=== PATIENT | female | born 1995 | race Caucasian/White ===

== ENCOUNTER 2018-01-07 22:30 | Outpatient (CLI) | payer MEDICAID ==
[2018-01-07 23:58] LABS: APPEARANCE,URINE CLOUDY; BILIRUBIN,URINE NEGATIVE (NEGATIVE); COLOR,URINE YELLOW; GLUCOSE, URINE NEGATIVE (NEGATIVE); KETONES,URINE NEGATIVE (NEGATIVE); LEUKOCYTE ESTERASE,URINE LARGE (NEGATIVE); NITRITE,URINE NEGATIVE (NEGATIVE); PROTEIN,URINE NEGATIVE (NEGATIVE); URINE SPECIFIC GRAVITY 1.024
[2018-01-08 00:14] LABS: URINE AMPHETAMINES SCREEN NEGATIVE; URINE BARBITURATES SCREEN NEGATIVE; URINE BENZODIAZEPINES SCREEN NEGATIVE; URINE COCAINE SCREEN NEGATIVE; URINE MARIJUANA (THC) SCREEN NEGATIVE; URINE METHADONE SCREEN NEGATIVE; URINE PHENCYCLIDINE SCREEN NEGATIVE
--- NOTE | 2018-01-08 00:38 | Non Stress Test Report ---
Non Stress Test Datetime Report Generated by CPN: 01/08/2018 00:37 DEMOGRAPHIC Test Number: 1 EGA NST: 38.5 INDICATION Indication for Study: Ordered by Provider (Annotations: Data stored by CPN on behalf of user) VITAL SIGNS Temperature - NST: 99.1 Pulse - NST: 60 RESP - NST: 14 NBPSYS NST: 101 NBPDIA NST: 63 URINE RESULTS Urine Protein, NST: Negative Urine Ketones - NST: Negative Urine Glucose - NST: Negative Urine Blood - NST: Positive MONITORING Monitor Explained: Monitor Explained; Test Explained; Patient Verbalized Understanding Time on Monitor: 01/07/2018 22:58 Time off Monitor: 01/08/2018 00:28 NST Duration: 90 NST INTERVENTIONS NST Interventions: PO Hydration; Oxytocin Challenge Test Physician Notified NST: Dr. Younger BABY A: [id number] BABY A Movement : Present Contraction Frequency : None FHR Baseline : 125 Accelerations : 15X15 Decelerations : None Variability : Moderate 6-25bpm NST Review: Meets Criteria for Reactive NST NST Review and Verified By : RN Shun NST Results: Reactive NST COMMENTS NST Comments: No ctx's noted, pt reports pain 2/5. NST REPORT Report Trigger: Send Report
== END 2018-01-08 00:39 | disposition home or self-care (01) ==
LOC: LC 22:30
PROVIDERS: ATTEND Obstetrics & Gynecology
PROC: 4A1HXCZ Monitoring of Products of Conception, Cardiac Rate, External Approach (ICD-10-PCS; principal; 2018-01-07)
DX: O47.1 False labor at or after 37 completed weeks of gestation (principal); Z3A.38 38 weeks gestation of pregnancy
CPT/HCPCS: 59025; 80307; 81005

== ENCOUNTER 2018-01-12 07:19 | Inpatient (IN) | payer MEDICAID ==
[2018-01-12] MEDS ORDERED: OXYTOCIN/NORMAL SALINE 20 UNIT/1,000 ML RTUINJ IV PRN ×2 (08:35→20:32)
[2018-01-12] MEDS ORDERED: RINGERS SOLUTION,LACTATED 300 ML IV ONE (08:35)
[2018-01-12] MEDS ORDERED: RINGERS SOLUTION,LACTATED 1,000 ML IV PRN (08:35)
[2018-01-12] MEDS ORDERED: OXYTOCIN/NORMAL SALINE 0 UNIT/0 ML RTUINJ ONE (09:03)
[2018-01-12 09:10] LABS: APPEARANCE,URINE SLIGHTLY-CLOUDY; BILIRUBIN,URINE NEGATIVE (NEGATIVE); COLOR,URINE YELLOW; GLUCOSE, URINE NEGATIVE (NEGATIVE); KETONES,URINE NEGATIVE (NEGATIVE); LEUKOCYTE ESTERASE,URINE NEGATIVE (NEGATIVE); NITRITE,URINE NEGATIVE (NEGATIVE); PROTEIN,URINE 30 mg/dL (NEGATIVE); URINE SPECIFIC GRAVITY 1.028
[2018-01-12 09:24] LABS: URINE AMPHETAMINES SCREEN NEGATIVE; URINE BARBITURATES SCREEN NEGATIVE; URINE BENZODIAZEPINES SCREEN NEGATIVE; URINE COCAINE SCREEN NEGATIVE; URINE METHADONE SCREEN NEGATIVE; URINE PHENCYCLIDINE SCREEN NEGATIVE
[2018-01-12 09:28] LABS: URINE MARIJUANA (THC) SCREEN UNCONFIRMED POSITIVE
[2018-01-12 10:08] LABS: BASOPHILS % (AUTO) 0.3 % (0-2); HEMATOCRIT 28.3 % (36.0-47.0); LYMPHOCYTES % (AUTO) 32.2 % (13-45); MEAN CORPUSCULAR HEMOGLOBIN 33.4 pg (27.0-33.4); MEAN CORPUSCULAR HGB CONC 35.4 g/dL (32.0-36.0); MEAN CORPUSCULAR VOLUME 95 fl (80-97); MONOCYTES % (AUTO) 7.5 % (3-13); PLATELET COUNT 122 10^3/uL (150-450); RED BLOOD COUNT 2.99 10^6/uL (3.72-5.28); RED CELL DISTRIBUTION WIDTH 12.6 % (11.5-14.0); WHITE BLOOD COUNT 5.2 10^3/uL (4.0-10.5)
[2018-01-12 10:09] LABS: ABSOLUTE EOSINOPHILS # (AUTO) 0.1 10^3/uL (0.0-0.6); ABSOLUTE LYMPHOCYTES (AUTO) 1.7 10^3/uL (0.5-4.7); ABSOLUTE MONOCYTES (AUTO) 0.4 10^3/uL (0.1-1.4); ABSOLUTE NEUT (AUTO) 3.1 10^3/uL (1.7-8.2); TOTAL CELLS COUNTED % (AUTO) 100 %
--- NOTE | 2018-01-12 12:55 | Admission Physical ---
Datetime Report Generated by CPN: 01/12/2018 12:55 CURRENT ADMISSION Chief Complaint: Scheduled Induction of Labor Indication for Induction: IUGR Admit Impression : No Active Labor Admit Plan: Initiate Labor Induction Protocol ALLERGIES Medication Allergies: No Medication Allergies: No Known Allergies (01/07/2018) Latex: No Latex Allergies OBSTETRICAL HISTORY EDC: 01/16/2018 00:00 : 2 Para: 1 Term: 1 : 0 SAB: 0 IAB: 0 Ectopic: N/A Livin Cesareans: 0 VBACs: N/A Multiple Births: 0 Gestational Diabetes: No Rh Sensitization: No Incompetent Cervix: No ANSON: No Infertility: No ART Treatment: No Uterine Anomaly: No IUGR: No Hx Previous C/S: No Macrosomia: No Hx Loss/Stillborn: No PIH: No Hx : No Placenta Previa/Abruption: No Depression/PP Depression: No PTL/PROM: No Post Hemorrhage: No Current Procedures: Ultrasound; NST Obstetrical History Comments: G1 - Baby girl born @ 37 weeks; NVD G2 - Current SEE RECORDS Alcohol: No Marijuana : No Cocaine: No Other Illicit Drugs: No Cigarettes: Never Smoker. [id number] MEDICAL HISTORY Diabetes: No Blood Transfusion: No Pulmonary Disease (Asthma, TB): No Breast Disease: No Hypertension: No Plate Former Surgery: No Heart Disease: No Hosp/Surgery: No Autoimmune Disorder: No Anesthetic Complications: No Kidney Disease: No Abnormal Pap Smear: No Neuro/Epilepsy: No Psychiatric Disorders: No Other Medical Diseases: No Hepatitis/Liver Disease: No Significant Family History: No Varicosities/Phlebitis: No Trauma/Violence : No Thyroid Dysfunction: No INFECTIOUS HISTORY Gonorrhea: No Genital Herpes: No Chlamydia: No Tuberculosis: No Syphilis: No Hepatitis: No HIV/AIDS Exposure: No Rash or Viral Illness: No HPV: No PHYSICAL EXAM General: Normal HEENT: Deferred Neurologic: Normal Thyroid: Deferred Heart: Normal Lungs: Normal Breast: Deferred Back: Deferred Abdomen: Normal Genitourinary Exam: Normal Extremities: Normal DTRs: Deferred Pelvic Type: Adequate Physical Exam Comments: No vaginal lesions on exam VAGINAL EXAM Dilatation: 3 Effacement: 50 Station: -2 MEMBRANES Membranes: Intact FETUS A EGA: 39.3 FHR- Baseline: 130 Variability: Moderate 6-25bpm Accelerations: 15X15 Decelerations: None FHR Category: Category I Admit Comment: dates by 17wk sono inconsistent care 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
--- NOTE | 2018-01-12 14:23 | L&D Progress Notes ---
PROGRESS NOTES Datetime Report Generated by CPN: 01/12/2018 14:23 PROGRESS NOTE Impression: Reactive Non Stress Test Plan: Induction Comment: MFM consulted by Dr. Nguyen regarding decision to induce labor for suspected IUGR based on 2nd trimester US, advised to proceed with IOL today Pt is in agreement with plan VAGINAL EXAM Dilatation: 3 Dilatation: 3 Effacement: 50 Effacement: 50 Station: -2 MEMBRANES Membranes: Intact Membranes: Intact FETUS A Monitoring: External US Variability: Moderate 6-25bpm : 39.3 : 39.3 SIGNATURE SIGNATURE: [id number] SIGNATURE: [id number] SIGNATURE: ,[id number] Assignment: Amber Nguyen MD Signature: with User ID: [email or web address] : with User ID: [email or web address]
[2018-01-12] MEDS ORDERED: FENTANYL/BUPIVACAINE/NS/PF 300 MCG/150 ML RTUINJ EPI ONE (17:23)
[2018-01-12] MEDS ORDERED: BUPIVACAINE HCL 0.5 % INJ/PF 30 ML SDV ONE (17:23)
[2018-01-12] MEDS ORDERED: EPHEDRINE SULFATE INJ 50 MG/1 ML AMPULE ONE (17:23)
[2018-01-12] MEDS ORDERED: OXYTOCIN/NORMAL SALINE 20 UNIT/1,000 ML RTUINJ ONE (18:25)
[2018-01-12] MEDS ORDERED: LIDOCAINE 1% INJ-PF (10 MG/ML) 30 ML SDV ONE (18:25)
[2018-01-12] MEDS ORDERED: MISOPROSTOL 0.2 MG TABLET ONE (18:25)
[2018-01-12] MEDS ORDERED: PROMETHAZINE HCL INJ 25 MG/1 ML VIAL IV PRN (20:32)
[2018-01-12] MEDS ORDERED: GLYCERIN/WITCH HAZEL LEAF 1 EACH MED..PAD TP PRN (20:32)
[2018-01-12] MEDS ORDERED: ACETAMINOPHEN 650 MG SUPP.RECT PR PRN (20:32)
[2018-01-12] MEDS ORDERED: PROMETHAZINE HCL 25 MG TABLET PO PRN (20:32)
[2018-01-12] MEDS ORDERED: DIPHENHYDRAMINE HCL 25 MG CAPSULE PO PRN (20:32)
[2018-01-12] MEDS ORDERED: ZOLPIDEM TARTRATE 5 MG TABLET PO PRN (20:32)
[2018-01-12] MEDS ORDERED: PSEUDOEPHEDRINE HCL 30 MG TABLET PO PRN (20:32)
[2018-01-12] MEDS ORDERED: DIBUCAINE 1% OINTMENT 28 GM TP PRN (20:32)
[2018-01-12] MEDS ORDERED: MEASLES,MUMPS&RUBELLA VACC/PF 0.5 ML VIAL SUBCUT PRN (20:32)
[2018-01-12] MEDS ORDERED: NA PHOS,M-B/NA PHOS,DI-BA (ADULT) 133 ML ENEMA PR PRN (20:32)
[2018-01-12] MEDS ORDERED: MAGNESIUM HYDROXIDE SUSP 30 ML UDCUP PO PRN (20:32)
[2018-01-12] MEDS ORDERED: PROMETHAZINE HCL 25 MG SUPP.RECT PR PRN (20:32)
[2018-01-12] MEDS ORDERED: DIPH/PERTUSS(ACELL)/TETANUS VAC/PF 0.5 ML SYR (>=10YO) IM PRN (20:32)
[2018-01-12] MEDS ORDERED: BENZOCAINE/MENTHOL AEROSOL SPRAY 56 ML TOP PRN (20:32)
[2018-01-12] MEDS: IBUPROFEN 800 MG TABLET PO SCH (22:41)
[2018-01-12] MEDS: FAMOTIDINE 20 MG TABLET PO SCH (22:45)
[2018-01-13] MEDS: ACETAMINOPHEN WITH CODEINE #3 TABLET PO PRN ×3 (02:50→21:31)
[2018-01-13] MEDS: IBUPROFEN 800 MG TABLET PO SCH ×3 (05:49→21:30)
[2018-01-13 07:33] LABS: HEMATOCRIT 28.4 % (36.0-47.0); HEMOGLOBIN 10.1 g/dL (12.0-15.5); MEAN CORPUSCULAR HEMOGLOBIN 33.8 pg (27.0-33.4); MEAN CORPUSCULAR HGB CONC 35.6 g/dL (32.0-36.0); MEAN CORPUSCULAR VOLUME 95 fl (80-97); PLATELET COUNT 129 10^3/uL (150-450); RED BLOOD COUNT 2.99 10^6/uL (3.72-5.28); RED CELL DISTRIBUTION WIDTH 12.3 % (11.5-14.0); WHITE BLOOD COUNT 7.9 10^3/uL (4.0-10.5)
[2018-01-13] MEDS: FAMOTIDINE 20 MG TABLET PO SCH ×2 (09:06→21:30)
[2018-01-13] MEDS: PRENATAL VITAMIN W DHA CAPSULE PO SCH (09:06)
[2018-01-13] MEDS: FERROUS SULFATE 325 MG TABLET PO SCH ×2 (09:07→17:20)
[2018-01-13] MEDS: DOCUSATE SODIUM 100 MG CAPSULE PO SCH ×2 (09:07→17:20)
[2018-01-13] MEDS: SENNOSIDES/DOCUSATE 8.6-50 MG 1 EACH TABLET PO SCH (09:07)
--- NOTE | 2018-01-13 09:14 | PDOC PROGRESS REPORT ---
Subjective Progress Note for:: 01/13/18 Subjective:: Patient states that she feels good; decreasing lochia. Breast-feeding is going well. Patient denies chest pain, shortness of breath, fever/chills and nausea/ vomiting. She is ambulating voiding without difficulty. Reason For Visit: IOL FOR IUGR Physical Exam - Physical Exam Vital Signs: Temp Pulse Resp BP Pulse Ox 98.4 F 64 15 103/69 100 01/13/18 07:58 01/13/18 07:58 01/13/18 07:58 01/13/18 07:58 01/13/18 07:58 Intake & Output 01/12/18 01/13/18 01/14/18 06:59 06:59 06:59 Intake Total 300 Balance 300 Weight 53 kg General appearance: PRESENT: no acute distress Respiratory exam: PRESENT: clear to auscultation karina Cardiovascular exam: PRESENT: RRR GI/Abdominal exam: PRESENT: normal bowel sounds, soft - Fundus firm and below umbilicus Extremities exam: ABSENT: calf tenderness, clubbing, full ROM, joint swelling, pedal edema, tenderness, +1 edema, +2 edema, other Result Laboratory Results: 01/13/18 07:01 01/12/18 01/12/18 01/12/18 07:30 09:33 09:33 WBC 5.2 RBC 2.99 L Hgb 10.0 L Hct 28.3 L MCV 95 MCH 33.4 MCHC 35.4 RDW 12.6 Plt Count 122 L Seg Neutrophils % 59.0 Lymphocytes % 32.2 Monocytes % 7.5 Eosinophils % 1.0 Basophils % 0.3 Absolute Neutrophils 3.1 Absolute Lymphocytes 1.7 Absolute Monocytes 0.4 Absolute Eosinophils 0.1 Absolute Basophils 0.0 Urine Color YELLOW Urine Appearance SLIGHTLY-CLOUDY Urine pH 6.0 Ur Specific [place] 1.028 Urine Protein 30 H Urine Glucose (UA) NEGATIVE Urine Ketones NEGATIVE Urine Blood NEGATIVE Urine Nitrite NEGATIVE Ur Leukocyte Esterase NEGATIVE Urine WBC (Auto) 2 Urine RBC (Auto) 1 Blood Type A POSITIVE Antibody Screen NEGATIVE 01/13/18 07:01 WBC 7.9 RBC 2.99 L Hgb 10.1 L Hct 28.4 L MCV 95 MCH 33.8 H MCHC 35.6 RDW 12.3 Plt Count 129 L Seg Neutrophils % Lymphocytes % Monocytes % Eosinophils % Basophils % Absolute Neutrophils Absolute Lymphocytes Absolute Monocytes Absolute Eosinophils Absolute Basophils Urine Color Urine Appearance Urine pH Ur Specific [place] Urine Protein Urine Glucose (UA) Urine Ketones Urine Blood Urine Nitrite Ur Leukocyte Esterase Urine WBC (Auto) Urine RBC (Auto) Blood Type Antibody Screen Assessment & Plan - Diagnosis (1) Anemia, Is this a current diagnosis for this admission?: Yes (2) IUGR (intrauterine growth restriction) Is this a current diagnosis for this admission?: Yes (3) Vaginal delivery Is this a current diagnosis for this admission?: Yes - Plan Summary Plan Summary: Plan: 1. PPD#1--status post normal spontaneous vaginal delivery--doing well 2. Mild anemia--stable 3. Continue care
[2018-01-14] MEDS: IBUPROFEN 800 MG TABLET PO SCH ×2 (06:00→13:45)
[2018-01-14 08:36] VITALS: BP 115/75
[2018-01-14 08:36] LABS: HSV-I IGG AB <0.91 index (0.00-0.90)
--- NOTE | 2018-01-14 08:40 | Delivery Summary ---
Del Sum A-C Datetime Report Generated by CPN: 01/14/2018 08:40 DELIVERY PERSONNEL DELIVERY PERSONNEL: [id number] Delivery Doctor:: Amber Nguyen MD Labor and Delivery Nurse:: Tere Martínez RNdye range tender Nurse:: Alyssia Crain RN Nursery Nurse:: Mira Broussard RN Speed Reading Teacher/SUPERVISOR POULTRY HATCHERY: Darby Hanna, PHARMACIST INTERN MATERNAL INFORMATION Delivery Anesthesia: Epidural Medications After Delivery: Pitocin Drip 20 Units/1000ml NSS Estimated Blood Loss (ml): 100 Maternal Complications: None Provider Comments: VMI delivered in KANE presentation. No nuchal cord. Shoulders and body delivered without difficulty. Placenta delivered intact spontaneously. FF at U. No perineal lacerations. Mother and baby stable upon provider leaving the room. LABOR SUMMARY EDC: 01/16/2018 00:00 No. Babies in Womb: 1 Attempted: No Labor Anesthesia: Epidural LABOR INFORMATION Reason for Induction: Intrauterine Growth Retardation Onset of Labor: 01/12/2018 13:53 Complete Dilatation: 01/12/2018 19:44 Oxytocin: Induction Group B Beta Strep: Negative Antibiotics # of Doses: 0 Steroids Given: None Reason Steroids Not Administered: Not Applicable MEMBRANES Membranes Rupture Method: Artificial (Annotations: Jose C De Leon CNM) Rupture of Membranes: 01/12/2018 13:53 Length of Rupture (hr): 6.02 Amniotic Fluid Color: Clear Amniotic Fluid Amount: Moderate Amniotic Fluid Odor: Normal STAGES OF LABOR Stage 1 hr: 5 Stage 1 min: 51 Stage 2 hr: 0 Stage 2 min: 10 Stage 3 hr: 0 Stage 3 min: 3 Total Time in Labor hr: 6 Total Time in Labor min: 4 VAGINAL DELIVERY Episiotomy: None Laceration #1: None Laceration Extension #1: N/A Laceration Repair: Not Applicable Sponge Count Correct: Yes Sharps Count Correct: Yes CSECTION DELIVERY Primary Indication: N/A Secondary Indication: N/A CSection Incidence: N/A Labor: N/A Elective: N/A CSection Incision: N/A BABY A INFORMATION Delivery Date/Time: 01/12/2018 19:54 Method of Delivery: Vaginal Method of Delivery: Vaginal Born in Route : No : N/A Forceps: N/A Vacuum Extraction: N/A Shoulder Dystocia : No PRESENTATION/POSITION BABY A Presentation: Cephalic Cephalic Presentation: Vertex Vertex Position: Right Occipital Anterior Breech Presentation: N/A PLACENTA INFORMATION BABY A Placenta Delivery Time : 01/12/2018 19:57 Placenta Method of Delivery: Spontaneous Placenta Method of Delivery: Spontaneous Placenta Status: Delivered SCORES BABY A Heart Rate 1 min: >100 bpm Resp Effort 1 min: Good Cry Reflex Irritability 1 min: Cough or Sneeze or Pulls Away Muscle Tone 1 min: Active Motion Color 1 min: Body [place], Extremities Blue Resuscitation Effort 1 min: Tactile Stimulation SCORE 1 MIN: 9 Heart Rate 5 min: >100 bpm Resp Effort 5 min: Good Cry Reflex Irritability 5 min: Cough or Sneeze or Pulls Away Muscle Tone 5 min: Active Motion Color 5 min: Body [place], Extremities Blue Resuscitation Effort 5 min: Tactile Stimulation SCORE 5 MIN: 9 INFORMATION BABY A Gestational Age at Delivery: 39.3 Gestational Status: Full Term- 39- 40.6 Weeks Infant Outcome : Liveborn Infant Condition : Stable Infant Sex: Male Infant Sex: Male IDENTIFICATION BABY A Infant Verification Date/Time: 01/12/2018 20:05 ID Band Number: [id number] Mother's Name Verified: Yes Infant RN Verifying : Ramy Martínez RN, F. [address]anna ST WEIGHT/LENGTH BABY A Birthweight (gm): 2900 Infant Weight (lb): 6 Infant Weight (oz): 6 Length (in): 19.00 Length (cm): 48.26 CORD INFORMATION BABY A No. Cord Vessels: 3 Nuchal Cord : N/A Cord Blood Taken: Yes-For Storage (Mom's Blood type +) Suction: None ASSESSMENT BABY A Skin to Skin: Yes Skin to Skin Time (min): 60 BABY B INFORMATION : N/A SIGNATURES Signature: with User ID: [email or web address] : I was personally available for consultation and serving as supervising physician for the MLP. : I was personally available for consultation and serving as supervising physician for the MLP. : I was personally available for consultation and serving as supervising physician for the MLP.
[2018-01-14] MEDS: FAMOTIDINE 20 MG TABLET PO SCH (10:15)
[2018-01-14] MEDS: PRENATAL VITAMIN W DHA CAPSULE PO SCH (10:15)
[2018-01-14] MEDS: FERROUS SULFATE 325 MG TABLET PO SCH (10:16)
[2018-01-14] MEDS: DOCUSATE SODIUM 100 MG CAPSULE PO SCH (10:16)
[2018-01-14] MEDS: SENNOSIDES/DOCUSATE 8.6-50 MG 1 EACH TABLET PO SCH (10:16)
--- NOTE | 2018-01-14 10:57 | PDOC PROGRESS REPORT ---
Subjective-OB Progress Note for:: 01/14/18 Subjective: Doing well, ready to go home, breast feeding Physical Exam (OB) Vital Signs: Temp Pulse Resp BP Pulse Ox 98.5 F 60 16 115/75 100 01/14/18 08:30 01/14/18 08:30 01/14/18 08:30 01/14/18 08:30 01/14/18 08:30 Intake & Output 01/13/18 01/14/18 01/15/18 06:59 06:59 06:59 Intake Total 900 Balance 900 Weight 53 kg - PIH/Pre-Eclampsia Clonus: Negative Headache: Absent Epigastric Pain: No Visual Changes: No - Lochia Lochia Amount: Scant < 10 ml Lochia Color: Rubra/Red - Abdomen Description: Soft, Round Hernia Present: No Fundal Description: Firm, Midline Fundal Height: u/u - u/2 Objective-Diagnostic Laboratory: 01/13/18 07:01 Assessment and Plan(PN) - Assessment and Plan (1) Anemia, Is this a current diagnosis for this admission?: Yes (2) Vaginal delivery Is this a current diagnosis for this admission?: Yes (3) IUGR (intrauterine growth restriction) Is this a current diagnosis for this admission?: Yes - Time Spent with Patient Time with patient: Less than 15 minutes Medications reviewed and adjusted accordingly: Yes - Disposition Anticipated Discharge: Home Within: within 24 hours
--- NOTE | 2018-01-14 11:02 | PDOC DISCHARGE SUMMARY ---
Final Diagnosis Discharge Date: 01/14/18 - Final Diagnosis (1) Anemia, Is this a current diagnosis for this admission?: Yes (2) Vaginal delivery Is this a current diagnosis for this admission?: Yes (3) IUGR (intrauterine growth restriction) Is this a current diagnosis for this admission?: Yes Discharge Data - Discharge Medication Home Medications: Acyclovir [Acyclovir 400 mg Tablet] 400 mg PO BID 01/07/18 Gestational Age: 39.3 Reason(s) for Admission: Induction of Labor Admission Note: IUGR Procedures: NST, Ultrasound Intrapartum Procedure(s): Spontaneous Vaginal Delivery - Diagnosis Test Laboratory: Temp Pulse Resp BP Pulse Ox 98.5 F 60 16 115/75 100 01/14/18 08:30 01/14/18 08:30 01/14/18 08:30 01/14/18 08:30 01/14/18 08:30 01/12/18 01/12/18 01/13/18 07:30 09:33 07:01 RBC 2.99 L 2.99 L Hgb 10.0 L 10.1 L Hct 28.3 L 28.4 L Urine Opiates Screen NEGATIVE - Discharge information/Instructions Discharge Activity: Activity As Tolerated, No Lifting Over 10 Pounds, No Lifting /Push/Pulling, Pelvic Rest Discharge Diet: As Tolerated, Regular Disposition: HOME, SELF-CARE Follow up with: [facility] in: 4
[2018-01-14] MEDS: ACETAMINOPHEN WITH CODEINE #3 TABLET PO PRN (11:52)
== END 2018-01-14 16:00 | disposition home or self-care (01) | DRG 807 ==
LOC: LR 07:19 → 2S 22:06
PROVIDERS: ADMIT Student in an Organized Health Care Education/Training Program; ATTEND Student in an Organized Health Care Education/Training Program
PROC: 10E0XZZ Delivery of Products of Conception, External Approach (ICD-10-PCS; principal; 2018-01-12)
PROC: 4A1HXCZ Monitoring of Products of Conception, Cardiac Rate, External Approach (ICD-10-PCS; 2018-01-12)
DX: O36.5930 Maternal care for other known or suspected poor fetal growth, third trimester, not applicable or unspecified (principal); Z37.0 Single live birth; O99.02 Anemia complicating childbirth; D64.9 Anemia, unspecified; Z3A.39 39 weeks gestation of pregnancy
CPT/HCPCS: 36415; 80307; 81001; 85025; 85027; 86592; 86695; 86850; 86900; 86901; 88307; 90471; 90686; 94760; G0008; J2590; J3010; J3490